=== PATIENT | male | born 1970 | race Caucasian/White ===

== ENCOUNTER 2020-02-26 16:42 | Emergency (ER) | payer MEDICARE ==
[2020-02-26] MEDS ORDERED: FAMOTIDINE 20 MG/2 ML SYRINGE IVP STA (17:07)
[2020-02-26] MEDS ORDERED: SODIUM CHLORIDE 0.9% 1,000 ML IV STA (17:07)
[2020-02-26 17:16] LABS: BASOPHILS # (AUTO) 0.1 10^3/uL (0.0-0.1); BASOPHILS % (AUTO) 0.4 %; EOSINOPHILS # (AUTO) 0.1 10^3/uL (0.0-0.7); EOSINOPHILS % (AUTO) 0.8 %; HGB - HEMOGLOBIN 15.6 g/dL (14.0-18.0); LYMPHOCYTES # (AUTO) 1.7 10^3/uL (1.5-3.5); LYMPHOCYTES % (AUTO) 11.2 %; MEAN CORPUSCULAR HEMOGLOBIN 30.9 pg (27.0-31.0); MEAN CORPUSCULAR HGB CONC 34.3 g/dL (32.0-36.0); MEAN CORPUSCULAR VOLUME 90.1 fL (80.0-94.0); MEAN PLATELET VOLUME 9.2 fL (7.4-11.4); MONOCYTES # (AUTO) 0.5 10^3/uL (0.0-1.0); MONOCYTES % (AUTO) 3.5 %; NEUTROPHILS % (AUTO) 83.7 %; PLT - PLATELET COUNT 316 10^3/uL (130-450); RED BLOOD COUNT 5.05 10^6/uL (4.70-6.10); RED CELL DISTRIBUTION WIDTH 12.8 % (12.0-15.0); WHITE BLOOD COUNT 15.6 x10^3/uL (4.8-10.8)
[2020-02-26 17:27] LABS: ALBUMIN/GLOBULIN RATIO 1.5 (1.0-2.2); CALCIUM 9.3 mg/dL (8.5-10.3); CREATININE 1.1 mg/dL (0.6-1.2); MAGNESIUM 2.4 mg/dL (1.7-2.8); TOTAL PROTEIN 8.3 g/dL (6.7-8.2)
[2020-02-26 17:51] LABS: MUDS CUTOFF CONCENTRATIONS CUTOFF CONC BELOW:
[2020-02-26 17:53] LABS: ACETAMINOPHEN < 10 ug/mL (10-30); SALICYLATE < 6.0 mg/dL
--- NOTE | 2020-02-26 18:06 | ED Physician Documentation ---
History of Present Illness - Stated complaint Stated Complaint: N/V BLOOD - Chief complaint Chief Complaint: General - History obtained from History obtained from: Patient - History of Present Illness Timing: Prior to arrival Pain level max: 0 Pain level now: 0 - Additonal information Additional information: 49-year-old male presents to the emergency department with chief complaint of vomiting blood. Patient states that today he has vomited approximately 10 times. Often the blood the vomit was blood-tinged or pink. He does admit to drinking Kratom over the last 2 days and has never drank this before. Denies hematochezia or black stools Patient reports that in 2013 he had a perforated gastric ulcer secondary to NSAID overuse. Since that hospitalization in [place] he has been taking pantoprazole daily. At present patient denies abdominal pain hematuria or hematochezia or fevers. pmh: htn, ptsd, bipolar soc: + tobacco, cannabis meds: pantropazole, propanalol, seroquel, trazadone, amoxatine, lamotrigine Patient currently on [facility] is he is working on the [employer]. He typically lives in [place] Review of Systems Constitutional: denies: Fever, Chills Cardiac: denies: Chest pain / pressure, Palpitations Respiratory: denies: Dyspnea, Cough GI: reports: Nausea, Vomiting, Hematemesis. denies: Abdominal Pain, Constipation, Diarrhea, Bloody / black stool : denies: Dysuria, Frequency Skin: denies: Rash, Lesions Neurologic: denies: Generalized weakness, Focal weakness, Difficulty speaking, S yncope, Seizure, Headache, Head injury PD PAST MEDICAL HISTORY - Past Medical History Past Medical History: Yes Cardiovascular: None Respiratory: None Neuro: None Endocrine/Autoimmune: None GI: Hepatitis, Cirrhosis HEENT: None Psych: Depression, Anxiety, ADD/ADHD Derm: None - Past Surgical History Past Surgical History: Yes - Allergies Allergies/Adverse Reactions: Allergies Allergy/AdvReac Type Severity Reaction Status Date / Time No Known Drug Allergies Allergy Verified 02/26/20 16:52 - Social History Does the pt smoke?: Yes PD ED PE NORMAL - General General: Alert and oriented X 3, No acute distress, Well developed/nourished - HEENT HEENT: EOMI - Neck Neck: Supple, no meningeal sign, No bony TTP - Cardiac Cardiac: RRR, No murmur - Respiratory Respiratory: No respiratory distress - Abdomen Abdomen: Normal bowel sounds, Soft, Non tender, Non distended - Male Male : Deferred, Other (reducible left inguinal hernia without incarceration) - Back Back: No CVA TTP, No spinal TTP - Derm Derm: Normal color, Warm and dry, No rash - Extremities Extremities: No deformity, No tenderness to palpate, No edema Results - Vitals Vitals: Vital Signs - 24 hr 02/26/20 02/26/20 02/26/20 16:49 17:13 18:12 Temperature 37 C 97.4 C H Heart Rate 50 L 50 L 67 Respiratory 24 10 L 13 Rate Blood Pressure 188/106 H 155/95 H 169/89 H O2 Saturation 100 100 100 Oxygen O2 Source Room air - Labs Labs: Laboratory Tests 02/26/20 02/26/20 02/26/20 17:00 17:00 17:08 WBC 15.6 H RBC 5.05 Hgb 15.6 Hct 45.5 MCV 90.1 MCH 30.9 MCHC 34.3 RDW 12.8 Plt Count 316 MPV 9.2 Neut # (Auto) 13.0 H Lymph # (Auto) 1.7 [place] # (Auto) 0.5 Eos # (Auto) 0.1 Baso # (Auto) 0.1 Absolute Nucleated RBC 0.00 Nucleated RBC % 0.0 Sodium 138 Potassium 3.7 Chloride 103 Carbon Dioxide 27 Anion Gap 8.0 BUN 20 Creatinine 1.1 Estimated GFR (MDRD) 71 L Glucose 120 H Calcium 9.3 Magnesium 2.4 Total Bilirubin 1.0 AST 35 ALT 25 Alkaline Phosphatase 55 Total Protein 8.3 H Albumin 5.0 Globulin 3.3 Albumin/Globulin Ratio 1.5 Lipase 36 Salicylates Urine Opiates Screen Ur Oxycodone Screen Urine Methadone Screen Ur Propoxyphene Screen Acetaminophen Ur Barbiturates Screen Ur Tricyclics Screen Ur Phencyclidine Scrn Ur Amphetamine Screen U Methamphetamines Scrn U Benzodiazepines Scrn Urine Cocaine Screen U Cannabinoids Screen Ethyl Alcohol < 5.0 02/26/20 02/26/20 17:08 17:45 WBC RBC Hgb Hct MCV MCH MCHC RDW Plt Count MPV Neut # (Auto) Lymph # (Auto) [place] # (Auto) Eos # (Auto) Baso # (Auto) Absolute Nucleated RBC Nucleated RBC % Sodium Potassium Chloride Carbon Dioxide Anion Gap BUN Creatinine Estimated GFR (MDRD) Glucose Calcium Magnesium Total Bilirubin AST ALT Alkaline Phosphatase Total Protein Albumin Globulin Albumin/Globulin Ratio Lipase Salicylates < 6.0 Urine Opiates Screen NEGATIVE Ur Oxycodone Screen NEGATIVE Urine Methadone Screen NEGATIVE Ur Propoxyphene Screen NEGATIVE Acetaminophen < 10 L Ur Barbiturates Screen NEGATIVE Ur Tricyclics Screen POSITIVE H Ur Phencyclidine Scrn NEGATIVE Ur Amphetamine Screen NEGATIVE U Methamphetamines Scrn NEGATIVE U Benzodiazepines Scrn NEGATIVE Urine Cocaine Screen NEGATIVE U Cannabinoids Screen POSITIVE H Ethyl Alcohol PD MEDICAL DECISION MAKING - ED course Complexity details: reviewed results, d/w patient, d/w family ED course: 49-year-old male presents to the emergency department with chief complaint of vomiting that began this afternoon after he drank Kratom. He does have a history of GI perforation after NSAID overuse but that was in 2013. At this time patient denies any abdominal pain. - His labs are reviewed in full. He has mild leukocytosis. His hemogram and creatinine are normal. Liver function and kidney function are normal. While in the emergency department he was given 1 L of IV fluids and Pepcid. Shortly after receiving these medications he denied any further nausea and has been able to sip clear liquids. - I discussed the lab findings with the patient and his significant other. At this time there is no indication to proceed with advanced imaging. Patient is hemodynamically stable and he has no hematochezia or melena. - I suspect that the blood tinged or pink emesis was from forcefully retching over the last few hours. - Patient will be discharged home to continue his pantoprazole. He was advised to avoid any other herbal drinks such as Kratom. - Patient is to return to the emergency department for suddenly severe abdominal pain. A return of uncontrolled vomiting. Black or bloody stools. Departure - Departure Disposition: 01 Home, Self Care Clinical Impression: History of gastric ulcer Vomiting Qualifiers: Vomiting type: unspecified Vomiting Intractability: non-intractable Nausea presence: with nausea Qualified Code(s): R11.2 - Nausea with vomiting, unspecified Condition: Stable Instructions: ED PUD Comments: Please continue to take your pantoprazole daily. For the next few days I would encourage you to eat bland foods. It is also important that you avoid any further use of the herbal drink Kratom I would like you to follow-up this ED visit with your primary care doctor. Return to the emergency department if you develop suddenly severe belly pain. Return if you have fevers, uncontrolled vomiting or black or bloody stools
[2020-02-26 18:08] LABS: AMPHETAMINE SCREEN,URINE NEGATIVE (NEGATIVE); BENZODIAZEPINES SCREEN, URINE NEGATIVE (NEGATIVE); COCAINE SCREEN URINE NEGATIVE (NEGATIVE); METHADONE SCREEN, URINE NEGATIVE (NEGATIVE); METHAMPHETAMINES SCREEN, URINE NEGATIVE (NEGATIVE); OPIATE SCREEN, URINE NEGATIVE (NEGATIVE); OXYCODONE SCREEN, URINE NEGATIVE (NEGATIVE); PROPOXYPHENE SCREEN, URINE NEGATIVE (NEGATIVE); TRICYCLIC ANTIDEPRESSANT,URINE POSITIVE (NEGATIVE)
[2020-02-26 18:50] VITALS: BP 166/113
[2020-02-26 18:59] LABS: GASTROCCULT POSITIVE (Negative)
== END 2020-02-26 19:00 | disposition home or self-care (01) ==
LOC: ED 16:42
DX: R11.2 Nausea with vomiting, unspecified (principal); F17.200 Nicotine dependence, unspecified, uncomplicated; Z87.11 Personal history of peptic ulcer disease
CPT/HCPCS: 36415; 80053; 80306; 80307; 80320; 80329; 83690; 83735; 85025; 86850; 86900; 86901; 93005; 96374; 99284